=== PATIENT | male | born 1955 | race Caucasian/White ===

== ENCOUNTER → 2017-01-01 | Outpatient (CLI) | payer MEDICAID ==
[~2017-01-01] VITALS: Ht 180.3 cm; Wt 99.8 kg
== END | disposition home or self-care (01) ==
LOC: Rad HDHVI 14:16
PROVIDERS: ATTEND Internal Medicine Cardiovascular Disease
DX: Z01.810 Encounter for preprocedural cardiovascular examination (principal); I10 Essential (primary) hypertension; F41.9 Anxiety disorder, unspecified
CPT/HCPCS: 93017; 93306